=== PATIENT | female | born 1965 | race Caucasian/White ===

== ENCOUNTER 2023-01-06 19:14 | Emergency (ER) | payer BC, OTHER ==
[2023-01-06 19:53] VITALS: PULSE 69
[2023-01-06 20:18] LABS: ESTIMATED GFR 102 mL/min (>60)
[2023-01-06] MEDS ORDERED: Sodium Chloride 0.9% 10 ML Syringe FLUSH PRN (20:46)
[2023-01-06] MEDS: Ketorolac 30 MG/ML SDV IVPUSH ONE (21:14)
[2023-01-06] MEDS: Sodium Chloride 0.9% 1,000 ML IV SCH (21:15)
[2023-01-06] MEDS: Piperacillin/Tazobactam 3.375 GM in Sodium Chloride 0.9% 50 ML IV ONE (21:26)
[2023-01-06 21:57] VITALS: BP 147/70
== END 2023-01-06 22:16 ==
LOC: FB.ED 19:14
DX: K35.80 Unspecified acute appendicitis (principal); Z90.49 Acquired absence of other specified parts of digestive tract; Z88.8 Allergy status to other drugs, medicaments and biological substances
CPT/HCPCS: 36415; 74176; 80053; 83690; 84484; 85025; 86140; 93005; 96365; 96375; 99285; J1885; J2543; J3490; J7030